=== PATIENT | female | born 1985 | race Caucasian/White ===

== ENCOUNTER 2017-06-14 20:10 | Emergency (ER) | payer BC ==
--- NOTE | 2017-06-14 20:41 | Emergency Department Record ---
History of Present Illness - General Stated Complaint: ELEVATED TEMP,HEADACHE,COUGH,KYLER, Time Seen by Provider: 06/14/17 20:40 Source: Patient Mode of Arrival: Ambulatory Limitations: No limitations - History of Present Illness Initial Comments: 31 yo female presents with cough, low grade fever and wheezing. She is 5month and she has asthma. The onset of the symptoms was today. She is feeling the baby move. No vaginal bleeding. This is her first . She used her nebulizer twice today. The cough is productive with greenish sputum. No vomiting or diarrhea. No edema. No rash. OB Sparrow. MD Complaint: Cough, Fever, Nasal congestion -: Hour(s) Severity: Moderate Consistency: Constant Improves With: Nothing Worsens With: Other (coughinig) Context: Sick contacts Associated Symptoms: Cough, Headache, Hoarseness, Nasal congestion Treatments Prior to Arrival: Acetaminophen, Other (albuterol) - Related Data Home Medications Medication Instructions Recorded Confirmed Last Taken Aspirin 81 mg PO DAILY 06/14/17 06/14/17 Unknown Cyclobenzaprine HCl [Amrix] 30 mg PO DAILY 06/14/17 06/14/17 Unknown Docusate Sodium [Colace] 100 mg PO BID 06/14/17 06/14/17 Unknown Levocetirizine Dihydrochloride 5 mg PO DAILY 06/14/17 06/14/17 Unknown [Xyzal] Metformin HCl 1,000 mg PO BID 06/14/17 06/14/17 Unknown Montelukast Sodium [Singulair] 10 mg PO DAILY 06/14/17 06/14/17 Unknown No122/Iron/Folic Acid 1 each PO DAILY 06/14/17 06/14/17 Unknown [ Multi Tablet] Ranitidine HCl [Zantac] 150 mg PO DAILY 06/14/17 06/14/17 Unknown Previous Rx's Medication Instructions Recorded Amoxicillin 500Mg Capsule [Amoxil] 500 mg PO TID #30 tab 06/14/17 Prednisone [Prednisone 20Mg] 20 mg PO DAILY #5 tab 06/14/17 Allergies Allergy/AdvReac Type Severity Reaction Status Date / Time fenofibrate Allergy weakness Verified 06/14/17 21:13 tretinoin [From Retin-A] Allergy SKIN Verified 06/14/17 21:13 IRRITATION Review of Systems Constitutional: Reports: Fever. Denies: Chills, Malaise, Weakness Eyes: Denies: Eye discharge, Eye pain, Photophobia, Vision change ENT: Reports: Congestion, Throat pain Respiratory: Reports: Cough, Dyspnea, Wheezes. Denies: Hemoptysis, Stridor Cardiovascular: Denies: Chest pain, Palpitations, Syncope Endocrine: Denies: Fatigue, Polydipsia, Polyuria Gastrointestinal: Denies: Abdominal pain, Diarrhea, Nausea, Vomiting Genitourinary: Denies: Dysuria, Urgency Musculoskeletal: Denies: Arthralgia, Back pain, Joint swelling, Myalgia Skin: Denies: Bruising, Change in color, Rash Neurological: Reports: Headache. Denies: Numbness, Weakness Psychiatric: Denies: Anxiety Hematological/Lymphatic: Denies: Blood Clots, Easy bleeding, Easy bruising, Swollen glands Physical Exam - General General Appearance: Alert, Oriented x3, Cooperative, No acute distress Limitations: No limitations - Head Head exam: Normal inspection - Eye Eye exam: Normal appearance, PERRL. negative: Conjunctival injection, Scleral icterus - ENT ENT exam: Normal exam, Mucous membranes moist, Normal orophraynx. negative: Mucous membranes dry Ear exam: Normal external inspection Nasal Exam: Discharge (clear). negative: Dried blood, Sinus tenderness Mouth exam: Normal external inspection Teeth exam: Normal inspection Throat exam: Normal inspection. negative: Tonsillar erythema, Tonsillomegaly, Tonsillar exudate, R peritonsillar mass, L peritonsillar mass - Neck Neck exam: Normal inspection, Full ROM. negative: Tenderness - Respiratory Respiratory exam: Normal lung sounds bilaterally, Decreased breath sounds, Prolonged expiratory, Wheezes (moderate wheezing). negative: Accessory muscle use, Chest wall tenderness, Rales, Respiratory distress, Rhonchi, Stridor - Cardiovascular Cardiovascular Exam: Normal rhythm, Normal heart sounds - GI/Abdominal GI/Abdominal exam: Soft. negative: Tenderness - Rectal Rectal exam: Deferred - exam: Deferred - Extremities Extremities exam: Normal inspection, Full ROM, Normal capillary refill. negative: Pedal edema, Tenderness - Back Back exam: Reports: Normal inspection, Full ROM. Denies: CVA tenderness (R), CVA tenderness (L), Muscle spasm, Rash noted, Tenderness - Neurological Neurological exam: Alert, Normal gait, Oriented X3 - Psychiatric Psychiatric exam: Normal affect, Normal mood. negative: Agitated, Anxious - Skin Skin exam: Dry, Intact, Normal color, Warm Course - Reevaluation(s) Reevaluation #1: The patient has moderate diffuse wheezing She is 97% on room air 06/14/17 20:54 06/14/17 21:11 The patient was rechecked after the treatment. She has better air exchange with improved wheezing. 06/14/17 22:23 The Influenza are negative Given fever, productive cough she will be treated with antibiotic as well as prednisone She is doing very well with very good air exchange, very minimal wheeze She is non labored, no conversational dyspnea. She feels greatly improved We discussed calling the OB tomorrow to up date them on her health changes. Disposition Disposition: Discharge Clinical Impression: Bronchitis, Asthma exacerbation Disposition: Home, Self-Care Condition: (1) Good Instructions: Asthma (ED), Acute Bronchitis (ED) Additional Instructions: Call your OB tomorrow to update them on your symptoms given you are 5 months Return or be seen if worse, short of breath or any new concerns You may use your inhaler every 4-6 hours if needed. If you need it more that this you will need to be seen in the ED Call your OB tomorrow as well for a blood pressure check Prescriptions: Amoxicillin 500Mg Capsule [Amoxil] 500 mg PO TID #30 tab Prednisone [Prednisone 20Mg] 20 mg PO DAILY #5 tab Forms: Patient Portal Access Time of Disposition: 22:25 Quality - Quality Measures Quality Measures: N/A - Blood Pressure Screening Does Patient Have Any of the Following: No Blood Pressure Classification: Pre-Hypertensive BP Reading Systolic Measurement: 139 Diastolic Measurement: 89 Screening for High Blood Pressure: < Pre-Hypertensive BP, F/U Documented > [ G8950] Pre-Hypertensive Follow-up Interventions: Referral to alternative/primary care provider.
[2017-06-14] MEDS ORDERED: METHYLPREDNISOLONE PF 125MG/VIAL IVP ONE (20:50)
[2017-06-14] MEDS ORDERED: IPRATROPIUM/ALBUTEROL (0.5MG/3MG) NEB INH ONE (20:50)
[2017-06-14] MEDS ORDERED: 0.9 % SODIUM CHLORIDE 1,000 ML BAG IV ONE (21:09)
[2017-06-14 21:57] LABS: INFLUENZA A NEGATIVE (NEGATIVE); INFLUENZA B NEGATIVE (NEGATIVE)
[2017-06-14] MEDS ORDERED: AMOXICILLIN 500MG CAPSULE PO ONE (22:29)
== END 2017-06-14 22:47 | disposition home or self-care (01) ==
LOC: ER 20:10
DX: J45.901 Unspecified asthma with (acute) exacerbation (principal); R51 Headache; R50.81 Fever presenting with conditions classified elsewhere; Z33.1 Pregnant state, incidental
CPT/HCPCS: 87400; 94640; 96374; 99284; J2930; J7030

== ENCOUNTER 2019-07-18 19:03 | Emergency (ER) | payer BC ==
[2019-07-18] MEDS ORDERED: 0.9 % SODIUM CHLORIDE 1,000 ML BAG IV ONE (19:34)
[2019-07-18 19:54] LABS: ABSOLUTE NEUTROPHIL COUNT 7.07; BASO % 0.3 % (0-6); EOS % 1.1 % (0-6); GRAN % 58.6 % (47-80); HEMOGLOBIN 15.2 gm/dl (11.6-16.0); MEAN CELL VOLUME 83.6 fl (81-97); MEAN CORPUSCULAR HEMOGLOBIN 28.3 pg (27-33); MEAN CORPUSCULAR HGB CONC 33.8 g/dl (32-36); MEAN PLATELET VOLUME 10.2 fl (7.4-10.4); PLATELET COUNT 458 K/uL (130-400); RED BLOOD COUNT 5.38 M/uL (3.80-5.40); RED CELL DISTRIBUTION WIDTH 13.7 % (11.5-14.5); WHITE BLOOD COUNT W/O DIFF 12.1 K/uL (4.2-12.2)
[2019-07-18 20:07] LABS: BLOOD UREA NITROGEN 11 mg/dL (6-20); CREATININE 0.6 mg/dL (0.5-0.9); EST GLOMERULAR FILTRATION RATE > 60 mL/min
[2019-07-18 20:10] LABS: GLUCOSE,RANDOM 137 mg/dL (74-109)
--- NOTE | 2019-07-18 20:21 | Emergency Department Record ---
History of Present Illness - General Chief Complaint: Chest Pain Stated Complaint: CHEST PAIN Time Seen by Provider: 07/18/19 19:05 Source: Patient Mode of Arrival: Ambulatory Limitations: No limitations - History of Present Illness Initial Comments: pt has been having intermittent problems with her blood pressure since her of her 1 yr old. 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 today she had her iud removed. 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 she felt lightheaded and had some chest tightness MD Complaint: Chest pain, Other Onset/Timin -: Hour(s) Onset: During rest Pain Location: Substernal Pain Radiation: Back Severity: Moderate Severity scale (1-10): 4 Quality: Other Consistency: Constant, Getting worse Improves With: Nothing Worsens With: Nothing Other Symptoms: Palpitations - Related Data Home Medications Medication Instructions Recorded Confirmed Last Taken Hydrochlorothiazide [Hctz 12.5MG] 12.5 mg PO DAILY 07/18/19 07/18/19 07/18/19 Nifedipine [Procardia] 10 mg PO DAILY 07/18/19 07/18/19 07/18/19 Omeprazole 20 mg PO DAILY 07/18/19 07/18/19 07/18/19 Allergies Allergy/AdvReac Type Severity Reaction Status Date / Time fenofibrate Allergy weakness Verified 07/18/19 19:04 tretinoin [From Retin-A] Allergy SKIN Verified 07/18/19 19:04 IRRITATION Travel Screening - Travel/Exposure Within Last 30 Days Have you traveled within the last 30 days?: No - Travel/Exposure Within Last Year Have you traveled outside the [place] in the last year?: No - Additonal Travel Details Have you been exposed to anyone with a communicable illness?: No - Travel Symptoms Symptom Screening: None Review of Systems Reviewed: No additional complaints except as noted below Constitutional: Reports: As per HPI. Denies: Chills, Fever, Malaise, Night sweats, Weakness, Weight change Eyes: Reports: As per HPI. Denies: Eye discharge, Eye pain, Photophobia, Vision change ENT: Reports: As per HPI. Denies: Congestion, Dental pain, Ear pain, Epistaxis, Hearing loss, Throat pain Respiratory: Reports: As per HPI. Denies: Cough, Dyspnea, Hemoptysis, Stridor, Wheezes Cardiovascular: Reports: As per HPI, Chest pain, Palpitations. Denies: Arrhythmia, Dyspnea on exertion, Edema, Murmurs, Orthopnea, Paroxysmal nocturnal dyspnea, Rheumatic Fever, Syncope Endocrine: Reports: As per HPI. Denies: Fatigue, Heat or cold intolerance, Polydipsia, Polyuria Gastrointestinal: Reports: As per HPI. Denies: Abdominal pain, Constipation, Diarrhea, Hematemesis, Hematochezia, Melena, Nausea, Vomiting Genitourinary: Reports: As per HPI. Denies: Abnormal menses, Discharge, Dyspareunia, Dysuria, Frequency, Hematuria, Incontinence, Retention, Urgency Musculoskeletal: Reports: As per HPI. Denies: Arthralgia, Back pain, Gout, Joint swelling, Myalgia, Neck pain Skin: Reports: As per HPI. Denies: Bruising, Change in color, Change in hair/nails, Lesions, Pruritus, Rash Neurological: Reports: As per HPI. Denies: Abnormal gait, Confusion, Headache, Numbness, Paresthesias, Seizure, Tingling, Tremors, Vertigo, Weakness Psychiatric: Reports: As per HPI. Denies: Anxiety, Auditory hallucinations, Depression, Homicidal thoughts, Suicidal thoughts, Visual hallucinations Hematological/Lymphatic: Reports: As per HPI. Denies: Anemia, Blood Clots, Easy bleeding, Easy bruising, Swollen glands Past Medical History - SOCIAL HISTORY Smoking Status: Never smoker Alcohol Use: Occasional Drug Use: None - RESPIRATORY Hx Respiratory Disorders: Yes Hx Asthma: Yes (Airway reactive disease) - CARDIOVASCULAR Hx Cardio Disorders: Yes Hx Hypertension: Yes - NEURO Hx Neuro Disorders: Yes Hx Headaches: Yes - GI Hx GI Disorders: Yes Hx Ulcer: Yes Comment:: heartburn - Hx Genitourinary Disorders: Yes Comment:: Polycystic ovaries - ENDOCRINE Hx Endocrine Disorders: No - MUSCULOSKELETAL Hx Musculoskeletal Disorders: Yes Comment:: "hypermobility" - PSYCH Hx Psych Problems: No - HEMATOLOGY/ONCOLOGY Hx Hematology/Oncology Disorders: No Family Medical History Any Significant Family History?: Yes Family Hx Comment (NOT TO BE USED IN PLACE OF ITEMS BELOW): Dad w/diverticuli; hypermobility Hx Depression: Mother Hx HTN: Father, Mother Physical Exam - General General Appearance: Alert, Oriented x3, Cooperative, Mild distress - Head Head exam: Normal inspection - Eye Eye exam: Normal appearance, PERRL, EOMI Pupils: Normal accommodation - ENT ENT exam: Normal exam, Mucous membranes moist, Normal external ear exam, Normal orophraynx Ear exam: Normal external inspection. negative: External canal tenderness Nasal Exam: Normal inspection. negative: Discharge, Sinus tenderness Mouth exam: Normal external inspection, Tongue normal Teeth exam: Normal inspection. negative: Dental caries Throat exam: Normal inspection. negative: Tonsillar erythema, Tonsillar exudate - Neck Neck exam: Normal inspection, Full ROM. negative: Tenderness - Respiratory Respiratory exam: Normal lung sounds bilaterally. negative: Respiratory distress - Cardiovascular Cardiovascular Exam: Normal rhythm, Normal heart sounds, Tachycardia - GI/Abdominal GI/Abdominal exam: Soft, Normal bowel sounds. negative: Tenderness - Rectal Rectal exam: Deferred - exam: Deferred - Extremities Extremities exam: Normal inspection, Full ROM, Normal capillary refill. negative: Tenderness - Back Back exam: Reports: Normal inspection, Full ROM. Denies: Muscle spasm, Rash noted, Tenderness - Neurological Neurological exam: Alert, CN II-XII intact, Normal gait, Oriented X3 - Psychiatric Psychiatric exam: Normal affect, Normal mood - Skin Skin exam: Dry, Intact, Normal color, Warm Course Vital Signs 07/18/19 19:05 Temperature 99.1 F Pulse Rate [ 151 H Left] Respiratory 22 Rate Blood Pressure 137/89 [Left Arm] Pulse Ox 99 Medical Decision Making - Lab Data Result diagrams: 07/18/19 19:07 07/18/19 23:27 Lab Results 07/18/19 Range/Units 19:07 WBC 12.1 (4.2-12.2) K/uL RBC 5.38 (3.80-5.40) M/uL Hgb 15.2 (11.6-16.0) gm/dl Hct 45.0 (35.0-47.0) % MCV 83.6 (81-97) fl MCH 28.3 (27-33) pg MCHC 33.8 (32-36) g/dl RDW 13.7 (11.5-14.5) % Plt Count 458 H (130-400) K/uL MPV 10.2 (7.4-10.4) fl Gran % 58.6 (47-80) % Lymphocytes % 34.0 (16-45) % Monocytes % 6.0 (0-9) % Eosinophils % 1.1 (0-6) % Basophils % 0.3 (0-6) % Absolute Neutrophils 7.07 Disposition Disposition: Discharge Clinical Impression: Tachycardia, Hypokalemia Disposition: Home, Self-Care Condition: (1) Good Instructions: Heart Palpitations (ED), Hypokalemia (ED) Additional Instructions: follow up with family doctor. return sooner if worse. push fluids Forms: Patient Portal Access Quality - Quality Measures Quality Measures: N/A - Blood Pressure Screening Does Patient Have Any of the Following: No Blood Pressure Classification: Pre-Hypertensive BP Reading Systolic Measurement: 129 Diastolic Measurement: 89 Screening for High Blood Pressure: < Pre-Hypertensive BP, F/U Documented > [G8950] Pre-Hypertensive Follow-up Interventions: Follow-up with rescreen every year.
[2019-07-18 20:24] LABS: THYROID STIMULATING HORMONE 2.19 uIU/mL (0.270-4.20)
[2019-07-18] MEDS ORDERED: POTASSIUM CHLORIDE 20 MEQ TABLET PO ONE (20:41)
[2019-07-18] MEDS ORDERED: SOD CHLOR 0.9% WITH KCL 40MEQ 40 MEQ/1,000 ML IV.SOLN IV ONE (20:41)
[2019-07-18] MEDS ORDERED: ACETAMINOPHEN 500 MG TABLET PO ONE (20:56)
--- NOTE | 2019-07-18 21:28 | RADIOLOGY REPORT ---
EXAMINATION: Two View Chest Radiographs EXAM DATE: 07/18/2019 9:20 PM TECHNIQUE: Frontal and lateral views INDICATION: chest pain COMPARISON: 06/20/2016 ENCOUNTER: Not applicable FINDINGS: No pulmonary infiltrate, pneumothorax, or pleural effusion. The cardiomediastinal silhouette is withi n normal limits. IMPRESSION: No acute pulmonary disease. Dictated by: Steve Whitt MD on 07/18/2019 9:26 PM. .
== END 2019-07-19 00:21 | disposition home or self-care (01) ==
LOC: ER 19:03
DX: R00.0 Tachycardia, unspecified (principal); E87.6 Hypokalemia; R07.89 Other chest pain; R42 Dizziness and giddiness; I10 Essential (primary) hypertension
CPT/HCPCS: 71046; 80048; 84132; 84443; 84484; 85025; 85379; 93005; 93010; 96374; 99284; J7030